=== PATIENT | female | born 1985 | race Caucasian/White ===

== ENCOUNTER 2021-12-13 20:31 | Emergency (ER) | payer BC ==
[~2021-12-13] VITALS: Ht 172.7 cm; Wt 57.6 kg
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
--- NOTE | 2021-12-13 21:53 | NUR ---
Dolores dinh in ED - 12/13/21 at 2227 by JESSICA PT AWAKE A/OX3. TOLERATING R/A WELL WITH NO RESP DISTRESS OR SOB. SAFETY MEASURES IN PLACE. PT AWAKE A/OX4. TOLERATING R/A WELL WITH NO RESP DISTRESS OR SOB. SAFETY MEASURES IN PLACE.
[2021-12-13] MEDS ORDERED: IBUPROFEN 400 MG TABLET PO ONE (22:00)
--- NOTE | 2021-12-13 22:08 | NUR ---
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 PT SIGNED WAIVER FORM
[2021-12-13] MEDS ORDERED: IBUPROFEN 400 MG TABLET ONE (22:21)
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
--- NOTE | 2021-12-13 22:35 | NUR ---
US TECH AT PT'S BEDSIDE
[2021-12-13 23:54] VITALS: BP 130/73
--- NOTE | 2021-12-13 23:54 | NUR ---
Patient discharged to home in stable condition. Written and verbal after care instructions given. Patient verbalizes understanding of instruction. pt ambulatory with a steady gait
== END 2021-12-13 23:55 | disposition home or self-care (01) ==
LOC: ER 20:41
DX: S70.02XA Contusion of left hip, initial encounter (principal); S20.211A Contusion of right front wall of thorax, initial encounter; S30.1XXA Contusion of abdominal wall, initial encounter; Z88.0 Allergy status to penicillin; V49.49XA Driver injured in collision with other motor vehicles in traffic accident, initial encounter; Y93.89 Activity, other specified; Y92.413 State road as the place of occurrence of the external cause; Y99.8 Other external cause status
CPT/HCPCS: 71100-TC; 73502; 76700-TC

== ENCOUNTER 2023-01-19 23:52 | Emergency (ER) | payer BC ==
[~2023-01-19] VITALS: Ht 172.7 cm; Wt 57.6 kg
[2023-01-20 00:11] VITALS: TEMP 98.1
[2023-01-20] MEDS ORDERED: FAMOTIDINE (20 MG) 20 MG TABLET PO ONE (00:30)
[2023-01-20] MEDS ORDERED: predniSONE 50 MG TABLET PO ONE (00:30)
[2023-01-20] MEDS ORDERED: dexaMETHasone SOD PHOSPHATE 10 MG/ML VIAL ONE (00:45)
[2023-01-20] MEDS ORDERED: FAMOTIDINE (20 MG) 20 MG TABLET ONE (00:45)
[2023-01-20] MEDS ORDERED: dexaMETHasone SOD PHOSPHATE 4 MG/ML VIAL IM ONE (01:00)
[2023-01-20 01:50] VITALS: BP 132/89; O2SAT 98
[2023-01-20] MEDS ORDERED: EPIN0.3P3 IM (02:11)
[2023-01-20] MEDS ORDERED: FAMO20TA8 PO (02:11)
== END 2023-01-20 02:21 | disposition home or self-care (01) ==
LOC: ER 23:55
DX: T78.1XXA Other adverse food reactions, not elsewhere classified, initial encounter (principal); L50.9 Urticaria, unspecified; X58.XXXA Exposure to other specified factors, initial encounter
CPT/HCPCS: 99283; 96372; J1100; A6403